=== PATIENT | female | born 1975 | race Caucasian/White ===

== ENCOUNTER 2017-12-08 04:53 | Emergency (ER) | payer OTHER, MEDICAID ==
[2017-12-08] MEDS: TRIMETHOPRIM/SULFAMETHOX (DS) TAB PO (05:32)
[2017-12-08] MEDS: CEPHALEXIN 500 MG CAP PO (05:32)
[2017-12-08] MEDS: KETOROLAC 60 MG INJ IM (05:37)
== END 2017-12-08 05:42 | disposition home or self-care (01) ==
LOC: FTE 04:53
DX: S40.862A Insect bite (nonvenomous) of left upper arm, initial encounter (principal); S40.861A Insect bite (nonvenomous) of right upper arm, initial encounter; F17.210 Nicotine dependence, cigarettes, uncomplicated; S50.861A Insect bite (nonvenomous) of right forearm, initial encounter; W57.XXXA Bitten or stung by nonvenomous insect and other nonvenomous arthropods, initial encounter; Y92.9 Unspecified place or not applicable
CPT/HCPCS: 81025; 96372; 99284-25

== ENCOUNTER 2017-12-10 00:54 | Emergency (ER) | payer OTHER ==
[2017-12-10] MEDS: DEXAMETHASONE 10 MG/ML 1 ML INJ IM (02:01)
== END 2017-12-10 02:53 | disposition home or self-care (01) ==
LOC: FTE 00:54
DX: R60.0 Localized edema (principal); F17.210 Nicotine dependence, cigarettes, uncomplicated
CPT/HCPCS: 96372; 99284-25